=== PATIENT | male | born 1970 | race Caucasian/White ===

== ENCOUNTER 2021-02-03 17:33 | Emergency (ER) | payer OTHER ==
[~2021-02-03] VITALS: Ht 167.6 cm; Wt 117.9 kg
[2021-02-03 17:50] VITALS: BP 158/90
--- NOTE | 2021-02-03 18:01 | NUR ---
SEEN AND EXMAINED BY MAX ARCE
[2021-02-03] MEDS ORDERED: IBUP-1955 PO (18:04)
[2021-02-03] MEDS ORDERED: AMOX500C2 PO (18:04)
[2021-02-03] MEDS ORDERED: KETOROLAC TROMETHAMINE INJ 60 MG/2 ML VIAL IM ONE ×2 (18:16→18:30)
[2021-02-03] MEDS ORDERED: DEXAMETHASONE SOD PHOSPHATE 10 MG/ML VIAL ONE (18:16)
--- NOTE | 2021-02-03 18:25 | NUR ---
RAPID STREP OBTAINED AND SENT TO LAB.
[2021-02-03] MEDS ORDERED: DEXAMETHASONE SOD PHOSPHATE 4 MG/ML VIAL IM ONE (18:30)
== END 2021-02-03 18:28 | disposition home or self-care (01) ==
LOC: ER 17:41
DX: J02.0 Streptococcal pharyngitis (principal); I10 Essential (primary) hypertension
CPT/HCPCS: 87070; 87880; 96372 ×2; 99284; J1100; J1885; 86403-TC